=== PATIENT | male | born 1955 | race Caucasian/White ===

== ENCOUNTER 2017-03-17 08:35 | Day surgery (SDC) | payer BC ==
[2017-03-11 18:25] LABS: BASOPHILS 0.5 %; BASOPHILS ABSOLUTE 0.04 10/3/uL (0.0-0.16); EOSINOPHILS 2.9 %; EOSINOPHILS ABSOLUTE 0.23 10/3/uL (0.0-0.53); HEMATOCRIT 44.2 % (40.0-51.0); HEMOGLOBIN 15.1 g/dL (13.6-17.8); IMMATURE GRANULOCYTES 0.3 %; IMMATURE GRANULOCYTES ABSOLUTE 0.02 10/3/uL (0.0-0.11); LYMPHOCYTES 29.8 %; LYMPHOCYTES ABSOLUTE 2.36 10/3/uL (0.67-4.30); MANUAL DIFF NO %; MEAN CORPUS HGB CONC 34.2 g/dL (32.0-36.0); MEAN CORPUSCULAR HEMOGLOB 32.8 pg (26.0-34.0); MEAN CORPUSCULAR VOLUME 96.1 fL (80-100); MEAN PLATELET VOLUME 9.4 fL (9.2-13.0); MONOCYTES 10.1 %; NEUTROPHILS 56.4 %; NEUTROPHILS ABSOLUTE 4.48 10/3/uL (2.02-8.40); PLATELET COUNT 354 10/3/uL (150-400); RBC DISTRIBUTION WIDTH 12.9 % (12.0-16.0); WHITE BLOOD CELLS 7.9 10/3/uL (4.5-10.5)
[2017-03-11 19:10] LABS: BUN (BLOOD UREA NITROGEN) 18 MG/DL (6-23); CALCIUM, SERUM 9.3 MG/DL (8.5-10.4); CHLORIDE, SERUM 104 MMOL/L (96-112); CO2 (CARBON DIOXIDE) 28 MMOL/L (24-34); CREATININE 0.98 MG/DL (0.70-1.30); GFR AFRICAN AMERICAN 95 ML/MIN (>=60); GFR NON AFRICAN AMERICAN 82 ML/MIN (>=60); GLUCOSE, SERUM 88 MG/DL (60-99); POTASSIUM, SERUM 4.6 MMOL/L (3.5-5.3); SODIUM, SERUM 138 MMOL/L (135-148)
[~2017-03-17] VITALS: Ht 185.4 cm; Wt 96.6 kg
--- NOTE | ~2017-03-17 | OP ---
Record Of Operation [facility] [address] [place]. [address] NAME: YOBANI RODRIGUEZ : 53 STATUS : REG [facility] [place] PAT#: [id number] AGE: 62 ADM/REG DATE : 03/17/17 MR#: [id number] REPORT SERV DATE: 03/17/17 DICTATED BY: MEHDI SALAS DATE: 03/17/17 REPORT STATUS : Draft TRANSCRIBED BY: MODL DATE: 03/17/17 DATE OF PROCEDURE: 03/17/2017 PREOPERATIVE DIAGNOSIS: Bilateral inguinal hernia. POSTOPERATIVE DIAGNOSES: 1. Direct right inguinal hernia. 2. Indirect left inguinal hernia. OPERATION PERFORMED: Laparoscopic preperitoneal bilateral inguinal hernia repair with Bard 3DMax mesh. SENIOR PARTNER: Arnaldo Hogan MD ESTIMATED BLOOD LOSS: Less than 20 mL. IV FLUIDS: Adequate. INDICATION FOR PROCEDURE: Mr. Rodriguez is a 62-year-old, who developed bilateral inguinal hernias that are mildly symptomatic. I had full discussion of options, he opted for laparoscopic bilateral inguinal hernia repair. Risks and benefits of the procedure were discussed in detail and are outlined on his office H and P. DESCRIPTION OF OPERATION: After appropriate sedation, the patient was prepped and draped in proper sterile fashion. Skin and subcutaneous tissues below the umbilicus were infiltrated with local anesthesia. A transverse incision was made just below the umbilicus and to the right. Subcutaneous tissues were incised down to the external obliques fascia. External obliques fascia was then incised using cautery in transverse fashion. The right rectus muscle was elevated and the dissecting balloon was placed into the preperitoneal space and insufflated. This balloon was removed, we placed a structural balloon in the preperitoneal space and insufflated. Then we placed two lower midline 5-mm trocar under direct visualization. I began on the right side, we were able to visualize the epigastric vessels as well as the pubic symphysis. He had a direct inguinal hernia with some preperitoneal fat entering the hernia sac. This was dissected out. We then dissected out the spermatic cord. He had a small amount of preperitoneal fat entering the internal ring. Once the spermatic cord was identified, we then placed a piece of Bard 3DMax mesh into the preperitoneal space. It was slit and cut on the inferior aspect. It was fashioned around the spermatic cord. It was secured to Ty's ligament using the Securestrap, we placed another tack superior and medially. A third tack was placed superior and laterally. This gave us good coverage of the reconstructed internal ring as well as the direct defect. We turned our attention towards the left side then. There was no evidence of a direct hernia. We were able to visualize the epigastric vessels once again. The spermatic cord was dissected out, we had a hernia sac entering the internal ring on the left. The hernia sac was dissected out and ligated highly with a 2-0 PDS Endoloop. There was also some fat entering the canal which was reduced. We then placed a piece of Bard 3DMax mesh over the left inguinal floor. The mesh was fashioned around the spermatic cord. Once again, it was secured to Ty's Record Of Operation [facility] [address] [facility] [place]. [address] NAME: YOBANI RODRIGUEZ : 53 STATUS : REG [facility] [place] PAT#: [id number] AGE: 62 ADM/REG DATE : 03/17/17 MR#: [id number] REPORT SERV DATE: 03/17/17 DICTATED BY: MEHDI SALAS DATE: 03/17/17 REPORT STATUS : Draft TRANSCRIBED BY: RAMAKRISHNA DATE: 03/17/17 ligament using a Securestrap. No straps superiorly and medially and a third strap was placed superiorly and laterally. This gave us good coverage of Hesselbach triangle as well as a reconstructed internal ring. We evaluated both sides at this point, the mesh was in good placement. We instilled 20 mL of Marcaine into the preperitoneal space. We desufflated under direct visualization watching the mesh lay up against the abdominal wall. The fascia at the infraumbilical trocar site was then closed using 0 Vicryl suture. The skin was closed using interrupted running 4-0 Monocryl suture. Steri-Strips and dressings were then placed. The patient was taken to the recovery room in satisfactory condition. GULSHAN/RAMAKRISHNA Mehdi Salas M.D. / [id number] CC: Chip Novak MD
[~2017-03-17 08:35] MED LIST: *DENIES
== END 2017-03-17 15:15 | disposition home or self-care (01) ==
LOC: SDC 08:35
PROVIDERS: Specialist
PROC: 0YUA4JZ Supplement Bilateral Inguinal Region with Synthetic Substitute, Percutaneous Endoscopic Approach (ICD-10-PCS; principal; 2017-03-17 10:00)
DX: K40.20 Bilateral inguinal hernia, without obstruction or gangrene, not specified as recurrent (principal); I10 Essential (primary) hypertension; M10.9 Gout, unspecified
CPT/HCPCS: 80048; 85025; 93005; A9270-GY; C1713; C1726; C1727; C1781; J0690; J1885; J2250; J2405; J2710; J3010